=== PATIENT | female | born 1995 | race Caucasian/White ===

== ENCOUNTER 2025-08-14 00:24 | Emergency (ER) | payer MEDICAID ==
[~2025-08-14] VITALS: Ht 172.7 cm; Wt 77.0 kg
[2025-08-14 00:29] VITALS: O2SAT 99
[2025-08-14 01:20] LABS: BASOPHILS % 1.2 % (0.0-2.0); EOSINOPHILS % 0.6 % (0.0-5.0); HEMATOCRIT. 37.8 % (36.0-48.0); HEMOGLOBIN. 12.3 g/dL (12.0-16.0); LYMPHOCYTES % 22.5 % (20.0-50.0); MEAN PLATELET VOLUME 8.5 fl (7.4-10.4); MONOCYTES % 6.5 % (2.0-8.0); NEUTROPHILS % 69.2 % (40.0-76.0); PLATELET 355 x1000/uL (130-400); RED BLOOD CELL COUNT 4.37 mill/uL (4.2-5.4); RED CELL DISTRIBUTION WIDTH 15.1 % (11.6-14.6)
[2025-08-14 01:32] LABS: HCG SCREEN NEGATIVE
[2025-08-14] MEDS: ONDANSETRON HCL 4MG/2ML INJ IV ONE (01:32)
[2025-08-14] MEDS: SODIUM CHLORIDE 0.9% 1,000 ML IV ONE (01:32)
[2025-08-14 01:35] LABS: CREATININE 0.8 mg/dL (0.6-1.0); UREA NITROGEN BLOOD 8 mg/dL (9-23)
[2025-08-14 03:10] VITALS: TEMP 37.2
[2025-08-14] MEDS ORDERED: ONDA4TAB50 MT (05:24)
[2025-08-14 05:44] VITALS: BP 81/63; PULSE 77; RESP 19; O2SAT 100
== END 2025-08-14 05:40 | disposition home or self-care (01) ==
LOC: ER 00:24 → EDBD 00:24 → ER 05:40
DX: F10.129 Alcohol abuse with intoxication, unspecified (principal); Y90.9 Presence of alcohol in blood, level not specified
CPT/HCPCS: 80048; 80320; 84703; 85025; 36415; 96361; 96374; 99284; J2405; J7030; A4606; G0480